=== PATIENT | male | born 1995 | race Caucasian/White ===

== ENCOUNTER 2018-01-29 21:02 | Emergency (ER) | payer BC ==
[~2018-01-29] VITALS: Ht 195.6 cm; Wt 90.9 kg
[2018-01-29 21:04] VITALS: TEMP 97.8
[2018-01-29] MEDS ORDERED: PROAIR HFA0.09 MG/AC PO (21:16)
[2018-01-29] MEDS ORDERED: 00186-0372-20 IH (21:17)
[2018-01-29] MEDS ORDERED: ALBUTEROL0.83 MG/ML IH (21:17)
[2018-01-29] MEDS ORDERED: XANAX 0.5MG0.5 MG PO (22:22)
[2018-01-29 22:30] VITALS: BP 117/72; PULSE 58
== END 2018-01-29 22:38 | disposition home or self-care (01) ==
LOC: COL.ER 21:02
DX: G43.909 Migraine, unspecified, not intractable, without status migrainosus (principal); F41.9 Anxiety disorder, unspecified; R06.4 Hyperventilation; J45.909 Unspecified asthma, uncomplicated
CPT/HCPCS: J0780; J1200; J1885; J2060